=== PATIENT | female | born 1955 | race Caucasian/White ===

== ENCOUNTER 2019-08-29 18:08 | Emergency (ER) | payer OTHER ==
[~2019-08-29] VITALS: Ht 177.8 cm; Wt 90.7 kg
[~2019-08-29 18:08] MED LIST: ALBIPROI INH; ALBU90OI6 INH; ALBU90OI61 INH; ALIVE WOMEN'S1 EAC1; ALPR.5 PO; AMLO5; AMPDEX5 PO; ARIP10 PO; ASPI81EC PO; BENAML20/5 PO; BREO ELLIPTA 11 EACH IH; BUDE10.22; CLON.5 PO; CYAN1000; DULO30 PO; DULO60; ESTR.625 PO; FOLI1 PO; IMIP50 PO; LAMO50 PO; LEVFLO250 PO; LITH300C; METCAR500 PO; METO50; METPRE4DP PO; NUVIGIL PO; NUVIGIL150 MG; OMEG1CAP30; QUET300 PO; SIMV10 PO; TUDORZA PRESS400 MCG; VITAMIN D32000 UNIT PO
[2019-08-29] MEDS ORDERED: Cyclobenzaprine5 MG PO (18:33)
[2019-08-29 18:49] LABS: Source, Urine Catheter
[2019-08-29 19:07] LABS: Blood, Urine 5+ (Neg); Glucose Qualitative, Urine Neg (Neg); Ketones, Urine 1+ (Neg); Leukocyte Esterase, Urine 3+ (Neg); Nitrite, Urine Pos (Neg); Protein, Urine 2+ (Neg); Specific Gravity, Urine 1.015 (1.003-1.022); Urobilinogen, Urine 2+ (Normal)
[2019-08-29 19:19] LABS: Appearance, Urine Cloudy (Clear); Bilirubin, Urine 1+ (Neg); Color, Urine Amber (P-Yellow)
[2019-08-29 19:21] LABS: Red Blood Cells, Urine 25-50 /hpf (0-2); White Blood Cells, Urine TNTC /hpf (0-5)
[2019-08-29 19:22] LABS: Bacteria Few /hpf; Calcium Oxalate Crystals Few /hpf; Squamous Epithelial Cells Rare /hpf (Few); Transitional Epithelial Cells Few /hpf (0-Rare)
[2019-08-29 19:49] LABS: BASOPHILS ABSOLUTE AUTO 0.04 K/mm3 (0.00-0.23); BASOPHILS PERCENT AUTO 0 % (0-2); EOSINOPHILS ABSOLUTE AUTO 0.03 K/mm3 (0.00-0.68); EOSINOPHILS PERCENT AUTO 0 % (0-6); Hematocrit 44.4 % (33.0-51.0); Hemoglobin 14.1 g/dL (11.5-16.0); IMMATURE GRAN ABSOLUTE AUTO 0.04 K/mm3 (0.00-0.10); IMMATURE GRAN PERCENT AUTO 0 % (0-1); LYMPHOCYTES ABSOLUTE AUTO 0.66 K/mm3 (0.84-5.20); LYMPHOCYTES PERCENT AUTO 6 % (21-46); MONOCYTES ABSOLUTE AUTO 0.17 K/mm3 (0.16-1.47); MONOCYTES PERCENT AUTO 2 % (4-13); Mean Corpuscular HGB 31.1 pg (26.0-34.0); Mean Corpuscular HGB Conc 31.8 g/dL (31.5-36.5); Mean Corpuscular Volume 98 fL (80-100); Mean Platelet Volume 9.7 fL (9.1-12.4); NEUTROPHILS ABSOLUTE AUTO 10.73 K/mm3 (1.96-9.15); NEUTROPHILS PERCENT AUTO 92 % (41-73); Platelet Count 195 K/mm3 (150-400); RDW Coefficient Variation 12.2 % (11.7-14.2); RDW Standard Deviation 44.4 fL (35.1-46.3); Red Blood Cell Count 4.54 M/mm3 (3.80-5.20); White Blood Cell Count 11.67 K/mm3 (4.00-11.30)
[2019-08-29 20:06] LABS: Bun/Creatinine Ratio 15.7 (12.0-20.0); Calcium, Blood 8.9 mg/dL (8.5-10.1); Creatinine, Blood 1.4 mg/dL (0.40-1.00)
[2019-08-29] MEDS ORDERED: DULO60 PO (21:43)
[2019-08-29] MEDS ORDERED: AMLO5 PO (21:43)
[2019-08-29] MEDS ORDERED: ALPR.25 PO (21:43)
[2019-08-29] MEDS ORDERED: QUET300 PO (21:43)
[2019-08-29] MEDS ORDERED: MODA200 PO (21:44)
== END 2019-08-29 22:32 | disposition short-term general hospital (02) ==
LOC: ER 18:08
PROVIDERS: Physician Assistant
DX: S39.012A Strain of muscle, fascia and tendon of lower back, initial encounter (principal); N12 Tubulo-interstitial nephritis, not specified as acute or chronic; N13.30 Unspecified hydronephrosis; Z20.828 Contact with and (suspected) exposure to other viral communicable diseases; Z88.0 Allergy status to penicillin; Z88.5 Allergy status to narcotic agent; Z88.8 Allergy status to other drugs, medicaments and biological substances; Z79.899 Other long term (current) drug therapy; I10 Essential (primary) hypertension; F32.9 Major depressive disorder, single episode, unspecified; E78.5 Hyperlipidemia, unspecified; Z87.891 Personal history of nicotine dependence; W19.XXXA Unspecified fall, initial encounter
CPT/HCPCS: 36415; 76770; 80048; 81001; 85025; 87077; 87086; 87186; 96360; 96372-59; 99285-25; J1885; J7030; U0002

== ENCOUNTER → 2023-04-01 | Outpatient (CLI) | payer OTHER ==
[~2023-04-01] MED LIST changes: +ALPR.25 PO; +AMLO5 PO; +Cyclobenzaprine5 MG PO; +DULO60 PO; +MODA200 PO
== END | disposition home or self-care (01) ==
LOC: LAB SHORT 16:55 → LAB EV 16:55 → LAB SHORT 04-02 16:55
DX: R30.0 Dysuria (principal)
CPT/HCPCS: 87086

== ENCOUNTER 2024-02-11 15:51 | Inpatient (IN) | payer OTHER ==
[~2024-02-11] VITALS: Ht 170.2 cm; Wt 79.2 kg
[2024-02-11 17:04] LABS: BASOPHILS ABSOLUTE AUTO 0.06 K/mm3 (0.00-0.23); BASOPHILS PERCENT AUTO 1 % (0-2); EOSINOPHILS ABSOLUTE AUTO 0.06 K/mm3 (0.00-0.68); EOSINOPHILS PERCENT AUTO 1 % (0-6); Hematocrit 30.6 % (33.0-51.0); Hemoglobin 10.4 g/dL (11.5-16.0); IMMATURE GRAN PERCENT AUTO 0 % (0-1); LYMPHOCYTES ABSOLUTE AUTO 2.04 K/mm3 (0.84-5.20); LYMPHOCYTES PERCENT AUTO 37 % (21-46); MONOCYTES ABSOLUTE AUTO 0.54 K/mm3 (0.16-1.47); MONOCYTES PERCENT AUTO 10 % (4-13); Mean Corpuscular HGB 31.8 pg (26.0-34.0); Mean Corpuscular Volume 94 fL (80-100); NEUTROPHILS ABSOLUTE AUTO 2.89 K/mm3 (1.96-9.15); NEUTROPHILS PERCENT AUTO 52 % (41-73); Platelet Count 303 K/mm3 (150-400); RDW Coefficient Variation 11.9 % (11.7-14.2); RDW Standard Deviation 40.9 fL (35.1-46.3); Red Blood Cell Count 3.27 M/mm3 (3.80-5.20); White Blood Cell Count 5.59 K/mm3 (4.00-11.30)
[2024-02-11 17:27] LABS: Albumin/Globulin Ratio 1.1 (0.8-1.8); Bilirubin, Total 0.9 mg/dL (0.1-1.0); Bun/Creatinine Ratio 10.1 (12.0-20.0); Calcium, Blood 10.2 mg/dL (8.5-10.1); Creatinine, Blood 2.17 mg/dL (0.40-1.00); Globulin, Blood 3.5 g/dL (2.2-4.0); Potassium, Blood 4.1 mmol/L (3.5-5.5); Total Protein, Blood 7.5 g/dL (6.4-8.2)
[2024-02-11 17:37] LABS: Source, Urine Clean Catch
[2024-02-11 17:45] LABS: Appearance, Urine Hazy (Clear); Bilirubin, Urine Neg (Neg); Blood, Urine Neg (Neg); Color, Urine Yellow (P-Yellow); Glucose Qualitative, Urine Neg (Neg); Ketones, Urine Neg (Neg); Leukocyte Esterase, Urine 1+ (Neg); Nitrite, Urine Neg (Neg); Protein, Urine 1+ (Neg); Specific Gravity, Urine 1.005 (1.003-1.022); Urobilinogen, Urine NORM (Normal)
[2024-02-11 17:55] LABS: Bacteria Few /hpf; Red Blood Cells, Urine 0-2 /hpf (0-2); Squamous Epithelial Cells Few /hpf (Few)
[2024-02-11 17:56] LABS: Other Crystals Few /hpf
[2024-02-11] MEDS ORDERED: Ciprofloxacin 400MG/D5 200ML 200 ML IV ONE (19:35)
[2024-02-11] MEDS ORDERED: Acetaminophen 500 MG Tab PO ONE (19:40)
[2024-02-11] MEDS ORDERED: Ondansetron HCl 2 MG / ML 2ML Vial IV PRN (20:00)
[2024-02-11] MEDS ORDERED: NS 1,000 ML IV SCH (20:20)
[2024-02-11] MEDS ORDERED: Acetaminophen 500 MG Tab PO PRN (20:20)
[2024-02-11] MEDS ORDERED: ALPRAZolam 0.25 MG Tab PO PRN (20:25)
[2024-02-11] MEDS ORDERED: NS 1,000 ML IV ONE (21:00)
[2024-02-11] MEDS ORDERED: QUEtiapine Fumarate 300 MG Tab PO SCH (21:00)
[2024-02-11] MEDS ORDERED: Baclofen 10 MG Tab PO ONE (21:00)
[2024-02-11] MEDS ORDERED: Baclofen 10 MG Tab PO SCH (21:00)
[2024-02-11] MEDS ORDERED: RAZADYNE12 MG PO (21:28)
[2024-02-11] MEDS ORDERED: MEMANTINE HCL E28 MG PO (21:28)
[2024-02-11] MEDS ORDERED: BREO ELLIPTA 11 EAC1 INH (21:29)
[2024-02-11] MEDS ORDERED: ATORVASTATIN CA20 MG PO (21:30)
[2024-02-11 21:56] VITALS: BP 141/88
[2024-02-11 22:00] LABS: Eosinophils-Raw #,Urine 0; White Blood Cells Urine 0-2 /hpf (0-5)
[2024-02-11] MEDS ORDERED: QUET100 (22:24)
[2024-02-12] MEDS ORDERED: QUEtiapine Fumarate 100 MG Tab PO ONE (00:25)
[2024-02-12] MEDS ORDERED: Melatonin 5 MG Tablet PO SCH (00:25)
--- NOTE | 2024-02-12 05:18 | NUR ---
NOC SUMMARY- PT ARRIVED TO ROOM IN NO DISTRESS. PT WAS ABLE TO VOID VIA BSC. PT CONTINUES TO HAVE URINARY URGENCY WITH LITTLE OUTPUT. PT C/O HEADACHE AND TX WITH TYLENOL. PT WOKE UP THIS AM VERY ANXIOUS. PT TX WITH XANAX. PT IS VERY FORGETFUL AND IMPULSIVE. PT AGREED TO TRY PUREWICK DEVICE. PT HAS BEEN ABLE TO SLEEP SOME. CALL LIGHT IN REACH AND BED ALARM ON.
[2024-02-12 07:19] VITALS: BP 133/78
[2024-02-12 07:31] LABS: Bun/Creatinine Ratio 9.8 (12.0-20.0); Calcium, Blood 9.1 mg/dL (8.5-10.1); Creatinine, Blood 2.05 mg/dL (0.40-1.00); Potassium, Blood 3.7 mmol/L (3.5-5.5)
[2024-02-12] MEDS ORDERED: Lactated Ringer's 1,000 ML IV SCH (08:00)
[2024-02-12] MEDS ORDERED: AmLODIPine Besylate 5 MG Tab PO SCH (09:00)
[2024-02-12] MEDS ORDERED: Heparin Sodium 5000 Units/ML 1ML MDV SC SCH (09:00)
[2024-02-12] MEDS ORDERED: Cyclobenzaprine HCl 10 MG Tab PO ONE (10:00)
[2024-02-12] MEDS ORDERED: Cyclobenzaprine HCl 10 MG Tab PO PRN (10:00)
[2024-02-12 15:24] VITALS: BP 145/89
[2024-02-12 16:04] LABS: Albumin, Blood 3.4 g/dL (3.4-5.0); Anion Gap 8 mmol/L (3-11); Blood Urea Nitrogen 17 mg/dL (8-24); Bun/Creatinine Ratio 8.9 (12.0-20.0); CO2, Blood 28 mmol/L (21-32); Calcium, Blood 9.2 mg/dL (8.5-10.1); Chloride, Blood 101 mmol/L (98-108); Creatinine, Blood 1.91 mg/dL (0.40-1.00); Glomerular Filtration Rate 29 (60-); Glucose, Blood 146 mg/dL (70-99); Phosphorus, Blood 3.2 mg/dL (2.5-4.9); Potassium, Blood 4.2 mmol/L (3.5-5.5); Sodium, Blood 133 mmol/L (136-145)
--- NOTE | 2024-02-12 18:21 | NUR ---
A MAN IN A HOODED SWEATSHIRT WALKED DOWN HALLWAY FROM [facility] AND ENTERED PATIENT ROOM, FOLLOWED BY AURISTCATARINO. SHORTLY THEREAFTER, THEY BOTH WALKED OUT AND BACK DOWN HALLWAY TOWARD IRU DESK. THE GENTELMAN AND THEN THE AURIST WALKED OUT. VISITOR CONTINUED LOOKING FORWARD AND MADE A COMMENT ABOUT BEING BACK TO VISIT LATER AND THE AURIST PROMPTLY STATED, "NO YOU WILL NOT. YOU ARE NOT ALLOWED BACK HERE." THE CONTINUED TO WALK TOWARD ELEVATOR. NOTHING WAS COMMUNICATED TO THIS RN OR ANY OTHER FLOOR STAFF BY VISITOR OR AURIST. CHARGE, KENDRICK TAYLOR, NOTIFIED.
--- NOTE | 2024-02-12 18:24 | NUR ---
END OF SHIFT SUMMARY: A&Ox3. PLEASANT AND COOPERATIVE WITH CARE. IMPULSIVE SECONDARY TO URINARY URGENCY. RENAL US DONE WITHOUT DEFINITIVE CONTRIBUTING FACTOR. CONTINUES TO HAVE C/O URINARY URGENCY. IMPULSIVE AND PULLED IV THIS AFTERNOON AFTER QUICKLY GETTING OUT OF BED TO GO TO THE COMMODE. UTILIZES CALL LIGHT AND IS ABLE TO ADVOCATE NEEDS, THOUGH IS FORGETFUL AND NEEDS TO BE REMINDED TO CALL. BED ALARM SET. CONTINENT WITH URGE INCONTINENCE. SBA c FWW. CONTINUES TO COMPLAIN OF LEFT-SIDED HEAD AND NECK PAIN UNRESOLVED WITH APAP, BACLOFEN OR CYCLOBENZAPRINE. BED IN LOWEST POSITION, CALL LIGHT WITHIN REACH, ALL NEEDS MET. REPORT TO ONCOMING NURSE.
[2024-02-12 19:43] VITALS: BP 143/86
[2024-02-12] MEDS ORDERED: QUEtiapine Fumarate 200 MG Tab PO SCH (21:00)
[2024-02-13 06:40] VITALS: BP 145/97
[2024-02-13 07:49] LABS: Bun/Creatinine Ratio 7.9 (12.0-20.0); Calcium, Blood 9.4 mg/dL (8.5-10.1); Creatinine, Blood 1.9 mg/dL (0.40-1.00); Potassium, Blood 3.9 mmol/L (3.5-5.5)
[2024-02-13 07:57] LABS: Source, Urine Straight Cath
[2024-02-13 08:27] LABS: Appearance, Urine Clear (Clear); Bilirubin, Urine Neg (Neg); Blood, Urine Neg (Neg); Color, Urine Yellow (P-Yellow); Glucose Qualitative, Urine Neg (Neg); Ketones, Urine Neg (Neg); Leukocyte Esterase, Urine Neg (Neg); Nitrite, Urine Neg (Neg); Protein, Urine Neg (Neg); Urobilinogen, Urine NORM (Normal)
[2024-02-13 08:56] LABS: Amorphous Light (0-Heavy); Bacteria Not Seen /hpf; Red Blood Cells, Urine Not Seen /hpf (0-2); Squamous Epithelial Cells Not Seen /hpf (Few); White Blood Cells, Urine Not Seen /hpf (0-5)
[2024-02-13 10:06] VITALS: BP 148/98
[2024-02-13] MEDS ORDERED: Tamsulosin HCl 0.4 MG Cap PO SCH (11:00)
[2024-02-13] MEDS ORDERED: Phenazopyridine HCl 100 MG Tab PO SCH (11:00)
--- NOTE | 2024-02-13 11:41 | NUR ---
CALLED DR SANCHEZ AM- SPOKE TO AFTER SHIFT CHANGE, PT MORE CONFUSED PER NIGHT RN REPORT, SHE HAS BECOME MORE IMPULSIVE AND IS HAVING DIFFICULTY FOLLOWING INSTRUCTIONS. SHE KEEPS ATTEMPTING TO GET OOB, STAFF ASSIST HER TO THE BSC AND SHE SITS FOR 1 MINUTE AND THEN GETS BACK TO BED. BLADDER SCAN SHOWS 639ML. RECIEVED AN ORDER FOR STRAIGHT CATH AND A UA WITH CULTURE IF INDICATED. PER REPORT THE LAST URINE SAMPLE WAS NOT AA VERY GOOD SAMPLE. STRAIGHT CATH PERFORMED, STERILE FIELD MAINTAINED 750ML OUT. PT AGGITATION GRADUALLY REDUCED AND SHE BECAME LESS IMPULSIVE. SPOKE TO DR CARTAGENA IN AM ROUNDS AND RECIEVED AN ORDER FOR FLOMAX, FIRST DOSE ADMINISTERED. PT CURRENTLY SITTING UP IN THE CHAIR, CALL LIGHT IN REACH, CHAIR ALARM FOR SAFETY. NO S&S OF DISTRESS NOTED AT THIS TIME.
[2024-02-13] MEDS ORDERED: QUETIAPINE FUM400 M1 PO (12:37)
[2024-02-13] MEDS ORDERED: QUETIAPINE FUM300 M1 PO (12:38)
[2024-02-13] MEDS ORDERED: QUETIAPINE FUM10011 PO (12:39)
--- NOTE | 2024-02-13 14:17 | NUR ---
CALLED DR CARTAGENA- PT HAS BECOME MORE AGGITATED AND CONFUSED AGAIN. SHE IS ORIENTED TO SELF ONLY. FREQUENT REMINDERS WHEN SHE IS TRYING TO PERFORM A TASK SEEM TO HELP. PT IS ABLE TO FOLLOW DIRECTIONS AT THIS TIME. PT HAS XANAX FOR ANXIETY, HOWEVER WITH THE COGNITIVE CONCERN, CALLED DR CARTAGENA TO SEE IF THE PT SHOULD GET THAT. PER DR CARTAGENA SHE WILL ORDER A DIFFERENT MEDICATION, THE BACLOFEN ORDER WAS ORDERED TO BE HELD AT THIS TIME. PT WAS ABLE TO GET UP TO THE BATHROOM, WITH REMINDERS EVERY 2 MINUTES "DID YOU PEE YET?" ETC. SHE WAS ABLE TO VOID 500ML.
[2024-02-13] MEDS ORDERED: OLANZapine ODT 5 MG Tab MM PRN (14:55)
[2024-02-13] MEDS ORDERED: Baclofen 10 MG Tab PO PRN (14:55)
[2024-02-13] MEDS ORDERED: Mometasone/Formoterol MDI 100/5 mcg 13 GM INH SCH (15:20)
[2024-02-13 15:22] VITALS: BP 132/74
[2024-02-13] MEDS ORDERED: QUEtiapine Fumarate 100 MG Tab PO PRN (15:45)
[2024-02-13] MEDS ORDERED: QUET100 PO (16:02)
--- NOTE | 2024-02-13 16:02 | NUR ---
TRANSFER NOTE- CALLED PT DAUGHTER ISSAC TO CLARIFY THE WAY THE PT TAKES HER MENTAL HEALTH MEDS. UPDATED THE HOME MED REC TO REFLECT THE MEDICATION THE WAY THE PT TAKES IT AT HOME. 300MG SEROQUEL IN THE MORNING 400MG AT NIGHT AAND 100MG ONCE A DAY IF NEEDED FOR AGGITATION/JENNA. THE 28MG NAMENDA IS A NEW DOSE AND THE PT HAS NOT STARTED THAT YET. CALLED DR CARTAGENA AND SHE IS AWARE, SSPOKE TO RECIEVEING RN IN THE SCU SSHE IS AWARE WELL. PT DAUGHTER IS AWARE OF THE TRANSFER FOR PT SAFETY. PT WAS TRANSFERED TO ROOM 348, SHE WAS A BIT AGGITATED, BUT PLEASENT AND CONFUSED AT THE TIME OF TRANSFER. NO S&S OF RESPIRATORY DISTRESS NOTED ON ROOM AIR AT THE TIME OF THE TRANSFER.
--- NOTE | 2024-02-13 18:43 | NUR ---
TRANSFER AND SHIFT SUMMARY PATIENT TRANSFERED TO 348 BECAUSE OF CONFUSION, IMPULSIVE BEHAVIOR. PATIENT HAS HX OF DEMENTIA AND BIPOLAR DISORDER. PATIENT HAVING ISSUES WITH URINARY RETENTION EARLIER TODAY. UA SENT AND NEGATIVE FOR BACTERIA. HOME MEDICATIONS REVIEWED WITH DAUGHTER AND HOME LIST UPDATED. PATIENT ALERT AND INTERACTIVE PATIENT ABLE TO AMBULATE WITH STAND BY ASSIST. PATIENT CONTINUES TO HAVE HEADACHE AND STATES THAT IT FEELS LIKE IT IS PULSATING IN HER HEAD. MEDICATED WITH TYLENOL WITH SOME IMPROVEMENT. DAUGHTER UPDATED
[2024-02-13 19:33] VITALS: BP 153/99
[2024-02-13] MEDS ORDERED: DULoxetine HCL 60 MG Capsule DR PO SCH (21:00)
[2024-02-13] MEDS ORDERED: QUEtiapine Fumarate 200 MG Tab PO SCH (21:00)
[2024-02-13] MEDS ORDERED: QUEtiapine Fumarate 100 MG Tab PO SCH (21:00)
[2024-02-13] MEDS ORDERED: Memantine HCL 5 MG Tab PO SCH (21:00)
[2024-02-13] MEDS ORDERED: QUEtiapine Fumarate 300 MG Tab PO SCH (21:00)
[2024-02-14 01:35] VITALS: BP 148/89
--- NOTE | 2024-02-14 04:48 | NUR ---
SHIFT SUMMARY PT ALERT ORIENTED TO SELF BUT VERY CONFUSED AND FORGETFUL. SHE USES A LOT OF WORD SALAD WHEN YOU TRY TO SPEAK WITH HER. C/O HEADACHE MEDICATED WITH TYLENOL BUT WITH ONLY A SLIGHT RELIEF OF PAIN. SHE HAS THE HEATING PACK UNDER HER. SHE HAS A HX OF DEMENTIA AND BIPOLAR AND CAN BE VERY IMPULSIVE AT TIMES. SHE WAS ABLE TO GET A FEW HOURS OF SLEEP LAST NIGHT. SHE AMBULATES TO THE BATHROOM WITH SBA. SHE HAS HAD NO PROBLEMS WITH URINATION THIS SHIFT. SHE CONTINUES ON LR AT 100. TAKES HER MEDS WHOLE WITH WATER. SHES RESTING IN BED AT THIS TIME WITH CALL LIGHT IN REACH
[2024-02-14 06:23] LABS: Albumin, Blood 3.4 g/dL (3.4-5.0); Bilirubin, Total 0.5 mg/dL (0.1-1.0); Bun/Creatinine Ratio 8.2 (12.0-20.0); Creatinine, Blood 1.7 mg/dL (0.40-1.00); Globulin, Blood 3.4 g/dL (2.2-4.0); Potassium, Blood 3.6 mmol/L (3.5-5.5); Total Protein, Blood 6.8 g/dL (6.4-8.2)
[2024-02-14 07:32] VITALS: BP 144/93
[2024-02-14] MEDS ORDERED: QUEtiapine Fumarate 300 MG Tab PO SCH (09:00)
[2024-02-14] MEDS ORDERED: ACET325 PO (13:52)
[2024-02-14] MEDS ORDERED: TAMS.4ER PO (13:52)
--- NOTE | 2024-02-14 14:54 | NUR ---
SHIFT SUMMARY AND DISCHARGE PATIENT ALERT AND INTERACTIVE BUT CONFUSED. PATIENT ABLE TO AMBULATE WITH MINIMAL STANDBY ASSIST. PATIENT CONTINUES TO HAVE HEADACHE. PATIENT REPORTS IT TO BE PULSATING AND COMING FROM THE BACK OF HER HEAD TO THE FRONT. PATIENT MEDICATED WITH TYLENOL PER ORDERS. REVIEWED WITH RELATED HEADACHE. NO NEW ORDERS AND PATIENT TO BE DISCHARGED HOME. DISCHARGE INSTRUCTIONS REVIEWED WITH DAUGHTER. IV DC'D. ROOM CHECK DONE PRIOR TO DISCHARGE. PATIENT TAKEN OUT VIA WHEELCHAIR BY YECENIA.
== END 2024-02-14 14:37 | disposition home or self-care (01) | DRG 683 ==
LOC: ER 15:51 → ERHOLD 15:52 → MEDS 15:52 → ENPENDDIS 02-14 14:04 → MEDS 02-14 14:37
PROVIDERS: Internal Medicine; Nurse Practitioner Acute Care; Physician Assistant; ADMIT Student in an Organized Health Care Education/Training Program
DX: N17.9 Acute kidney failure, unspecified (principal); E87.1 Hypo-osmolality and hyponatremia; F03.93 Unspecified dementia, unspecified severity, with mood disturbance; M54.2 Cervicalgia; N18.31 Chronic kidney disease, stage 3a; E83.52 Hypercalcemia; I12.9 Hypertensive chronic kidney disease with stage 1 through stage 4 chronic kidney disease, or unspecified chronic kidney disease; E86.1 Hypovolemia; E86.0 Dehydration; Z88.5 Allergy status to narcotic agent; Z88.0 Allergy status to penicillin; Z88.8 Allergy status to other drugs, medicaments and biological substances; Z85.118 Personal history of other malignant neoplasm of bronchus and lung; Z87.891 Personal history of nicotine dependence
CPT/HCPCS: 36415; 76770; 80048; 80053; 80069; 81001; 81003; 82570; 83690; 84300; 85025; 87086; 87205; 94640; 94664; 94760; 96361; 96372; 96374; 99284-25; A9270; G0378; J0744; J1644; J7030; J7120

== ENCOUNTER → 2024-03-13 | Outpatient (CLI) | payer OTHER ==
[~2024-03-13] MED LIST changes: +ACET325 PO; +ATORVASTATIN CA20 MG PO; +BREO ELLIPTA 11 EAC1 INH; +MEMANTINE HCL E28 MG PO; +QUET100; +QUET100 PO; +QUETIAPINE FUM10011 PO; +QUETIAPINE FUM300 M1 PO; +QUETIAPINE FUM400 M1 PO; +RAZADYNE12 MG PO; +TAMS.4ER PO
[2024-03-13 17:14] LABS: Protein, Urine Quantitative 5.6 mg/dL (0.0-11.9)
[2024-03-13 17:16] LABS: Microalbumin, Urine Quant. 5.92 mg/L (0.000-20.000)
[2024-03-19 20:39] LABS: HOURS COLLECTED Random hr; TOTAL VOLUME Random mL
== END ==
LOC: LAB 11:30 → LAB SHORT 11:30 → LAB FUT 03-11 15:15
PROVIDERS: Internal Medicine Nephrology
DX: N18.30 Chronic kidney disease, stage 3 unspecified (principal); D63.1 Anemia in chronic kidney disease; N25.81 Secondary hyperparathyroidism of renal origin; E55.9 Vitamin D deficiency, unspecified; R76.9 Abnormal immunological finding in serum, unspecified; R94.5 Abnormal results of liver function studies; R94.6 Abnormal results of thyroid function studies; D51.8 Other vitamin B12 deficiency anemias; D52.8 Other folate deficiency anemias; D50.9 Iron deficiency anemia, unspecified
CPT/HCPCS: 81050; 82043; 84156; 84166; 86335

== ENCOUNTER → 2024-05-25 | Outpatient (CLI) | payer OTHER | LOC: LAB SHORT 18:25 → LAB 18:25 | DX: N39.0 Urinary tract infection, site not specified (principal) | CPT/HCPCS: 87086 ==